=== PATIENT | male | born 1960 | race Caucasian/White ===

== ENCOUNTER 2023-07-06 21:47 | Emergency (ER) | payer OTHER ==
[~2023-07-06] VITALS: Ht 188 cm; Wt 77.2 kg
[2023-07-06] MEDS ORDERED: HYDROcodone/acetaminophen 10/325mg tab PO STA (22:06)
[2023-07-07] MEDS ORDERED: TETanus/Pertussis (Acell)/Diphther VAC/PF (Tdap-Adult) 0.5ml syringe IMVAC ONE (00:25)
[2023-07-07] MEDS ORDERED: ondansetron/PF 4mg/2ml inj IV ONE (00:25)
[2023-07-07] MEDS ORDERED: morphine 4 MG/ML inj SYRINge IV ONE (00:25)
[2023-07-07] MEDS ORDERED: piperacillin/tazo 4.5gm/100ml 100 ML IV SCH (01:05)
[2023-07-07] MEDS ORDERED: VANCOMYCIN 1,500MG inj. 1,500 MG in normal saline 500ml IV soln 300 ML IV ONE (01:06)
[2023-07-07 01:37] LABS: BASOPHILS # (AUTO) 0.1 X10'3 (0-0.2); EOSINOPHILS # (AUTO) 0.1 X10'3 (0-0.9); HEMATOCRIT 36.5 % (42.0-52.0); HEMOGLOBIN 12.3 g/dl (14.0-17.9); LYMPHOCYTES # (AUTO) 1.2 X10'3 (1.1-4.8); LYMPHOCYTES % (AUTO) 16.4 % (21-51); MEAN CORPUSCULAR HEMOGLOBIN 29.4 PG (27.0-31.0); MEAN CORPUSCULAR HGB CONC 33.6 g/dL (33.0-36.5); MEAN CORPUSCULAR VOLUME 87.5 FL (78-98); MONOCYTES # (AUTO) 0.5 X10'3 (0-0.9); MONOCYTES % (AUTO) 7.2 % (2-12); NEUTROPHILS # (AUTO) 5.4 X10'3 (1.8-7.7); NEUTROPHILS % (AUTO) 73.4 % (42-75); PLATELET COUNT 274 X10'3 (140-440); RED BLOOD COUNT 4.18 X10'6 (4.70-6.10); RED CELL DISTRIBUTION WIDTH 16.3 % (11.5-14.5); WHITE BLOOD COUNT 7.3 X10'3 (4.5-11.0)
[2023-07-07 01:38] LABS: ALANINE AMINOTRANSFERASE 13 U/L (12-78); ALBUMIN 3.7 G/DL (3.4-5.0); ALBUMIN/GLOBULIN RATIO 1.2 (1.1-1.5); ALKALINE PHOSPHATASE 65 IU/L (46-116); ANION GAP 7 (8-16); ASPARTATE AMINO TRANSFERASE 13 U/L (10-37); BILIRUBIN,TOTAL 0.3 MG/DL (0.1-1.0); BLOOD UREA NITROGEN 15 MG/DL (7-18); CALCIUM 8.7 MG/DL (8.5-10.1); CHLORIDE 104 MMOL/L (99-107); CREATININE 0.88 MG/DL (0.60-1.10); GLUCOSE 103 MG/DL (70-104); POTASSIUM 3.8 MMOL/L (3.5-5.1); SODIUM 139 MMOL/L (135-145); TOTAL CARBON DIOXIDE 28.4 MMOL/L (24-32); TOTAL PROTEIN 6.7 G/DL (6.4-8.2); eCRCL 93 ML/MIN; eGFR 87 ML/MIN
[2023-07-07 01:54] VITALS: BP 110/77; PULSE 54; TEMP 98.2; O2SAT 94
[2023-07-07 02:06] VITALS: RESP 18
[2023-07-07] MEDS ORDERED: AMOX-117 PO (04:02)
[2023-07-07] MEDS ORDERED: SULF1TAB49 PO (04:02)
[2023-07-07] MEDS ORDERED: HYDR-3965 PO (04:02)
== END 2023-07-07 05:09 | disposition home or self-care (01) ==
LOC: ER 21:48
DX: S62.634A Displaced fracture of distal phalanx of right ring finger, initial encounter for closed fracture (principal); W18.39XA Other fall on same level, initial encounter; Y93.89 Activity, other specified; Y92.89 Other specified places as the place of occurrence of the external cause; Y99.8 Other external cause status
CPT/HCPCS: 26742; 36415; 73130; 73140; 80053; 85025; 90471; 90715; 96365; 96368; 96375; 99284; A6222; J2270; J2405; J2543; J3370; J7040; 26770; 96374

== ENCOUNTER 2025-07-06 13:35 | Outpatient (CLI) | payer MEDICARE ==
--- NOTE | 2025-07-06 14:33 | RADIOLOGY REPORT ---
CT CT SINUS INDICATION: CHRONIC SINUSITIS TECHNIQUE: Noncontrast axial images of the facial bones are then obtained along with coronal and sagittal reformatted images. All CT scans at this facility use dose modulation, iterative reconstruction, and/or weight based dosing when appropriate to reduce radiation dose to as low as reasonably achievable. COMPARISON: None FINDINGS: Postsurgical changes related to bilateral maxillary antrostomy with less than 25 percent opacification of the right inferior maxillary sinus. Bilateral complete ethmoidectomy. Less than 25 percent opacification of the right sphenoid sinus. Pneumatization of the right clinoid process. Minimal mucosal thickening of the left maxillary sinus. Mastoid air cells are clear. Inconspicuous periapical lucency which may be related to periapical dental disease of the left central incisor of the maxilla. IMPRESSION: 1. Paranasal sinus mucosal thickening as detailed above with possible acute on chronic air-fluid level of the right sphenoid sinus.
== END 2025-07-06 23:59 | disposition home or self-care (01) ==
LOC: RAD 13:35
PROVIDERS: ATTEND Family Medicine
DX: J32.0 Chronic maxillary sinusitis (principal)
CPT/HCPCS: 70486